=== PATIENT | female | born 1950 | race Caucasian/White ===

== ENCOUNTER 2023-12-12 13:48 | Emergency (ER) | payer OTHER, SELFPAY ==
[2023-12-12 13:51] VITALS: BP 148/86
[2023-12-12 14:16] LABS: % Basophils 0.2 % (0-2); % Eosinophils 0.8 % (0-6); % Immature Granulocytes 0.4 % (0-0.5); % Lymphocytes 13.4 % (20.5-51.1); % Monocytes 8.8 % (1.7-9.3); % Neutrophils 76.4 % (42.2-75.2); Absolute Eosinophils 0.1 10^3/uL (0-0.7); Absolute Immature Granulocytes 0.1 10^3/uL (0-0.05); Absolute Lymphocytes 1.6 10^3/uL (1.2-3.4); Absolute Neutrophils 8.9 10^3/uL (1.4-6.5); Hematocrit 39.1 % (37.0-47.0); Hemoglobin 13.6 g/dL (12.0-16.0); Mean Corp Hgb Conc. 34.8 g/dL (33.0-37.0); Mean Corpuscular Hgb 28.3 pg (27.0-31.0); Mean Corpuscular Volume 81.5 fL (81.0-99.0); Mean Platelet Volume 9.5 fL (7.4-10.4); Nucleated Red Blood Cells % 0 %; Platelet Count 351 10^3/uL (130-400); Red Cell Dist. Width 13.4 % (11.5-14.5); White Blood Cell Count 11.6 10^3/uL (4.8-10.8)
[2023-12-12 14:29] VITALS: BMI 33.1
[2023-12-12 14:57] LABS: Blood Urea Nitrogen 13 mg/dl (7-17); Calcium 8.8 mg/dl (8.4-10.2); Carbon Dioxide 12 mmol/L (22-30); Chloride 113 mmol/L (98-107); Estimated Creatinine Clearance 78 ml/min; Glucose 111 mg/dl (70-99); Lipase 86 U/L (23-300); Sodium 140 mmol/L (135-145); eGFR > 60.00
--- NOTE | 2023-12-12 15:14 | PHANOTE ---
Med Rec Note- patient does not speak [place]ian daughter translating but doesn't know how to explain the medication in [place]ian that she gets filled in her country
[2023-12-12 15:22] LABS: Urine Albumin Trace (Neg - Trace); Urine Bilirubin 1+ (Negative); Urine Character Clear (Clear); Urine Color Yellow; Urine Glucose Negative (Negative); Urine Ketone 3+ (Negative); Urine Leukocyte Trace (Negative); Urine Nitrite Negative (Negative); Urine Occult Blood 2+ (Negative); Urine Urobilinogen 1+ (Neg - 1+)
--- NOTE | 2023-12-12 15:35 | ED.GENMED ---
History of Present Illness
<Stephanie Wong PA-C - Last Filed: 12/12/23 20:42>
General
Chief Complaint: Abdominal Pain
Source: patient and family (daughter at bedside interpreting)
Exam Limitations: none
Time Seen by Provider: 12/12/23 14:29
Nursing documentation reviewed up to this point in time: agreed with
Travel History
Have you had any contact with someone who has COVID-19?: No
Do you have any symptoms of coronavirus? Fever > 100 degrees, chills, cough, shortness of breath, sore throat, loss of taste or smell, muscle aches, or headache?: No
History of Present Illness
History of Present Illness:
Patient is a 73 year old female with history gallstones presenting with daughter for evaluation of right upper quadrant abdominal pain. Symptoms started on Saturday afternoon after eating a slice of cake. She endorses intermittent right upper
quadrant pain with radiation around to the back and some associated nausea. She had 2 episodes of vomiting on Saturday night. She denies any fever, chills, chest pain, shortness of breath. She has no urinary symptoms. Patient has had similar
episodes in the past but deferred surgery in her home country of [facility]. Patient's daughter brought her to emergency department today due to concern that gallbladder might be infected. Patient's most recent episode of pain was earlier this
morning and has since completely resolved. She is asymptomatic in the emergency department right now.
She is currently visiting her daughter from [facility] with plans to go back on December 20.
Phy Exam
<Stephanie Wong PA-C - Last Filed: 12/12/23 20:42>
Physical Exam
Physical Exam:
General: Well appearing and non-toxic
Vitals: Vital signs stable, afebrile
HEENT: Atraumatic, normocephalic; pupils equal round reactive light bilaterally, sclera nonicteric; protecting airway
Neck: appears supple, no JVD
CV: Regular rate and rhythm, heart sounds normal, no evidence of cyanosis
Resp: No evidence of respiratory distress, lungs clear, no accessory muscle use
Abd: Soft, not tender in all 4 quadrants, no rebound tenderness or guarding, non-distended; negative Abel sign; no CVA tenderness
Extremities: No deformities, no evidence of cyanosis or edema
Neuro: alert and oriented, no focal neurologic deficits
Psych: Normal affect
Skin: Intact, no rashes
Course
<Stephanie Wong PA-C - Last Filed: 12/12/23 20:42>
Orders/Labs/Results
Orders:
Orders
12/12/23 14:07
Basic Metabolic Panel Urgent
Complete Blood Count/With Diff Urgent
Lipase Urgent
12/12/23 14:57
US Abdomen Complete/Upper Urgent
Comment:
Reason For Exam: right upper quadrant pain, hx gallstones
12/12/23 14:59
Electrocardiogram (*1) Urgent
Reason for Study: Abdominal Pain
EKG- Treatment ONCE
12/12/23 Dinner
NPO
Allow oral meds: No
Allow clear liquids: No
12/12/23 15:12
Urinalysis Reflex To Culture Urgent
Date Specimen was Collected: 12/12/23
Time Specimen was Collected: 14:56
Urine Microscopic Reflex Cult Urgent
12/12/23 17:13
0.9% Sodium Chloride 1000 ml [Nss] 1,000 ml IV BOLUS
CefTRIAXone [Rocephin] 1,000 mg IV NOW STA
MetroNIDAZOLE 500 MG/100 ML [Flagyl 500 mg] 100 ml IV NOW
12/12/23 18:45
Ciprofloxacin HCl [Cipro] 500 mg PO NOW STA
MetroNIDAZOLE [Flagyl] 500 mg PO NOW STA
Abnormal Lab Results
12/12/23 12/12/23
14:07 15:12
WBC 11.6 H 10^3/uL
(4.8-10.8)
Abs Immat Gran (auto) 0.1 H 10^3/uL
(0-0.05)
Absolute Neuts (auto) 8.9 H 10^3/uL
(1.4-6.5)
Absolute Monos (auto) 1.0 H 10^3/uL
(0.1-0.6)
Neutrophils % 76.4 H %
(42.2-75.2)
Lymphocytes % 13.4 L %
(20.5-51.1)
Chloride 113 H mmol/L
(98-107)
Carbon Dioxide 12 L* mmol/L
(22-30)
Glucose 111 H mg/dl
(70-99)
Urine Ketones 3+ A
(Negative)
Ur Occult Blood Reflex 2+ A
(Negative)
Urine Bilirubin 1+ A
(Negative)
Leukocyte Esterase Rfl Trace A
(Negative)
Urine RBC 7-10 A /HPF
(0-2)
12/12/23 14:07
12/12/23 15:33
Vital Signs
Initial and Last Documented VS:
Initial Vital Signs
Temp Pulse Resp BP Pulse Ox
98.1 F 96 18 148/86 99
12/12/23 13:51 12/12/23 13:51 12/12/23 13:51 12/12/23 13:51 12/12/23 13:51
Last Documented Vital Signs
Temp Pulse Resp BP Pulse Ox
98.1 F 96 18 148/86 99
12/12/23 13:51 12/12/23 13:51 12/12/23 13:51 12/12/23 13:51 12/12/23 13:51
<Primo Haley MD - Last Filed: 12/12/23 17:11>
Orders/Labs/Results
Orders:
Orders
12/12/23 14:07
Basic Metabolic Panel Urgent
Complete Blood Count/With Diff Urgent
Lipase Urgent
12/12/23 14:57
US Abdomen Complete/Upper Urgent
Comment:
Reason For Exam: right upper quadrant pain, hx gallstones
12/12/23 14:59
Electrocardiogram (*1) Urgent
Reason for Study: Abdominal Pain
EKG- Treatment ONCE
12/12/23 Dinner
NPO
Allow oral meds: No
Allow clear liquids: No
12/12/23 15:12
Urinalysis Reflex To Culture Urgent
Date Specimen was Collected: 12/12/23
Time Specimen was Collected: 14:56
Urine Microscopic Reflex Cult Urgent
12/12/23 17:13
0.9% Sodium Chloride 1000 ml [Nss] 1,000 ml IV BOLUS
CefTRIAXone [Rocephin] 1,000 mg IV NOW STA
MetroNIDAZOLE 500 MG/100 ML [Flagyl 500 mg] 100 ml IV NOW
12/12/23 18:45
Ciprofloxacin HCl [Cipro] 500 mg PO NOW STA
MetroNIDAZOLE [Flagyl] 500 mg PO NOW STA
Abnormal Lab Results
12/12/23 12/12/23
14:07 15:12
WBC 11.6 H 10^3/uL
(4.8-10.8)
Abs Immat Gran (auto) 0.1 H 10^3/uL
(0-0.05)
Absolute Neuts (auto) 8.9 H 10^3/uL
(1.4-6.5)
Absolute Monos (auto) 1.0 H 10^3/uL
(0.1-0.6)
Neutrophils % 76.4 H %
(42.2-75.2)
Lymphocytes % 13.4 L %
(20.5-51.1)
Chloride 113 H mmol/L
(98-107)
Carbon Dioxide 12 L* mmol/L
(22-30)
Glucose 111 H mg/dl
(70-99)
Urine Ketones 3+ A
(Negative)
Ur Occult Blood Reflex 2+ A
(Negative)
Urine Bilirubin 1+ A
(Negative)
Leukocyte Esterase Rfl Trace A
(Negative)
Urine RBC 7-10 A /HPF
(0-2)
12/12/23 14:07
12/12/23 15:33
Vital Signs
Initial and Last Documented VS:
Initial Vital Signs
Temp Pulse Resp BP Pulse Ox
98.1 F 96 18 148/86 99
12/12/23 13:51 12/12/23 13:51 12/12/23 13:51 12/12/23 13:51 12/12/23 13:51
Last Documented Vital Signs
Temp Pulse Resp BP Pulse Ox
98.1 F 96 18 148/86 99
12/12/23 13:51 12/12/23 13:51 12/12/23 13:51 12/12/23 13:51 12/12/23 13:51
<Stephanie Wong PA-C - Last Filed: 12/12/23 20:42>
MDM/Problems Addressed
Differential Diagnosis Includes:
Biliary colic, cholecystitis, choledocholithiasis, renal colic, nephrolithiasis, UTI, pneumonia
MDM/Problems Addressed:
Patient is a 73 year old female with history gallstones presenting with daughter for evaluation of intermittent right upper quadrant abdominal pain. Pain is worse after meals with radiation around to the back and some associated nausea. Similar to
prior episodes of biliary colic in past. She denies any fever, chills, chest pain, shortness of breath. She has no urinary symptoms. Physical exam as documented above. She is very well appearing. She is hemodynamically stable, afebrile. Abdomen is
soft and nontender in all 4 quadrants. Negative Abel sign. No CVA tenderness. Patient currently asymptomatic, denies any pain medication at this time. Will check basic labs, UA, EKG, abdominal US.
CBC with mild leukocytosis to 11.6. Otherwise no clinically significant abnormalities. CMP with acidosis and CO2 level of 12. Specimen hemolyzed and were unable to run LFTs. Will repeat draw of the CMP to ensure accurate results and obtain liver
function test. Urinalysis positive for blood and ketones. Could indicate possible kidney stone. Will eval kidneys with ultrasound
Abdominal ultrasound shows evidence of gallstone in the gallbladder neck and a 'sludge ball 'and fundus of gallbladder there is thickened gallbladder wall and rim of pericholecystic edema�consistent with acute cholecystitis in conjunction with
elevated white blood cell count.
Discussed acute cholecystitis diagnosis with patient and patient's daughter. Recommended admission for IV antibiotics and cholecystectomy. Phlebotomy was consulted for repeats CMP blood draw. Patient's daughter declined repeat blood draw despite
discussion regarding abnormal results and unable to evaluate liver function. Patient is uninsured and daughter would prefer patient to wait until back in home country of [facility] for surgery. Both myself and attending physician had lengthy
discussion with patient and patient's daughter regarding risks of delaying treatment of acute cholecystitis including but not limited to worsening infection, severe abdominal pain, sepsis, significant worsening condition and/or . Despite
risks�patient and patient's daughter would like to sign out AGAINST MEDICAL ADVICE.
Will discharge patient AMA with p.o. ciprofloxacin /metronidazole for 10 days. Initial dose of ciprofloxacin metronidazole given emergency department tonight. Will send prescription for Zofran for nausea if needed. Weighed risks and benefit of
prolonged QT risk with both ciprofloxacin and Zofran. Patient normal QT on EKG from ER. Given initial low CO2 level on blood work�would want to limit any future vomiting. Risks discussed at length with patient and patient's daughter. Return
precautions discussed at length. They will get home and [facility] soon as possible for surgery. They are well aware of the risks, have signed AMA form, and will return with any worsening.
Chronic conditions affecting care:
Gallstones
Acute Exacerbation and/or Progression of Chronic Illness:
Acute cholecystitis
<Stephanie Wong PA-C - Last Filed: 12/12/23 20:42>
*Radiology
Radiology exam reviewed: preliminary read by ED provider and radiology read reviewed
*Pulse Oximetry
Patient hypoxic: no
*EKG
EKG Intrepretation Date: 12/12/23
Interpretation: normal
Comparison EKG: no comparison EKG present
Heart Rate: 77
Rate: normal
Rhythm: sinus
Erhard: normal axis
Interval: normal interval
QRS Pattern: normal QRS
Ischemia: no ischemia
*Hospitality Specialist Interpretation
Rate: Hospitality Specialist- N/A
*Critical Care Note
Total Time (30-74mins, 75-104mins- exclusive of procedures): Not Applicable
ED Attending Note
<Stephanie Wong PA-C - Last Filed: 12/12/23 20:42>
-
Portions of this chart may have been created with voice recognition software.� Occasional wrong word or��sound alike� substitutions may have occurred due to the inherent limitations of voice recognition software.
<Primo Haley MD - Last Filed: 12/12/23 17:11>
ED Attending Note
Patient seen and examined by attending physician: Yes
ED Attending Note:
HPI: 73-year-old female with history of gallstones presents with her daughter for evaluation of abdominal pain. Patient has had intermittent abdominal pain for the past few days�reports onset initially was after eating some cake. Most recent
episode was this morning and lasted for a few hours and fortunately has completely resolved. Pain located in the right upper quadrant and radiates towards the right flank. Seems to be worse after eating unhealthy foods. No clear relieving factors
noted. No nausea or vomiting. No diarrhea or constipation. No fevers or chills. No urinary symptoms. Patient reportedly has had similar symptoms in the past related to gallstones and was recommended to have her gallbladder removed but had not
had symptoms for a year and a half per daughter and deferred surgery. Symptoms much more frequent over the past few days�patient is planned to go back to her home country of [facility] for surgery in December but daughter was concerned given increased
frequency that there could be infection or obstruction and so she brought her for assessment.
ROS: Positive for abdominal pain; negative for nausea, vomit, diarrhea, constipation, chest pain, shortness of breath, fever, chills, dysuria, hematuria
Physical exam:
General: Awake, alert; no acute distress
Head: Normocephalic, atraumatic
Eyes: Conjunctiva normal, sclera anicteric
Throat: Airway intact, handling secretions
Neck: Trachea midline, supple without meningismus
Lungs: Clear to auscultation bilaterally, no wheezing, rales, rhonchi
Heart: Regular rate and rhythm, no murmurs, gallops, or rubs
Abd: Soft, non distended, nontender to deep palpation
Neuro: Cranial nerves grossly intact, speech fluid
Skin: no rash
Extremities: No edema in extremities, equal pulses in all extremities
Differential diagnosis: Cholelithiasis, cholecystitis, choledocholithiasis, pancreatitis, nephrolithiasis
Medical decision makin-year-old female presents for evaluation of waxing and waning right upper quadrant pain radiating to the right flank exacerbated by meals. Similar to prior biliary colic. Fortunately she is currently pain-free. Vital
signs normal. Exam as above�she has no abdominal tenderness. Will place an IV check labs including CBC and CMP, lipase. Check urinalysis. Will check upper abdominal ultrasound. EKG. Monitor and reassess.
Labs reviewed: CBC shows leukocytosis 11.6. CMP hemolyzed�repeat pending. Lipase normal. Abdominal ultrasound concerning for acute cholecystitis. PA discussed with general surgery for admission. Will cover with antibiotics.
Chronic conditions affecting care: Gallstones
Acute exacerbation or progression of chronic illness: N/A
History source: Patient, daughter
Data reviewed: N/A
Medications/testing considered: N/A
Social determinants of health: N/A
Discussion with other providers: General surgery
Discharge Plan
Departure
Patient Disposition: Against Medical Advice
Date of Disposition: 12/12/23
Time of Disposition: 18:53
Patient with high blood pressure during this ER visit?: Yes
Condition: Fair
Covid-19: Not Applicable
Discharge Problem:
Acute cholecystitis
Instructions: Gallstones (DC), Gallbladder Diet, BLOOD PRESSURE
Prescriptions:
New
metronidazole 500 mg tablet
500 mg PO TID 10 Days Qty: 30 0RF
ciprofloxacin HCl 500 mg tablet
500 mg PO BID 10 Days Qty: 20 0RF
ondansetron 4 mg tablet,disintegrating
4 mg PO TIDPRN PRN (Reason: nausea/vomiting) Qty: 7 0RF
Activity Restrictions/Additional Instructions:
- As discussed - you are leaving against medical advice today from the emergency department
-Return to the emergency department with any high fevers, severe abdominal pain, intractable vomiting, severe back pain, significant worsening in current symptoms, or any other concerns
-It is very important that you follow-up with a general surgeon as soon as you return back to [facility] for further evaluation/treatment of cholecystitis
-You received your first dose of antibiotic while in the emergency department today. I have sent prescriptions for the rest of your antibiotics to your pharmacy. It is important that you take these as directed for the full course. You must not
drink any alcohol while taking these medications.
-You can take Zofran every 8 hours as needed for persistent/severe nausea. You can take Tylenol/Motrin as needed for discomfort
-You should follow a low fat diet. Information has been provided to you regarding appropriate diet
Interventions
Interventions:
*Risk Screen - Suicide Last Done: 12/12/23 14:29
*General Assessment Last Done: 12/12/23 14:29
*Neglect/Abuse Screening Last Done: 12/12/23 14:29
ED- Fall Risk Assessment Last Done: 12/12/23 14:29
*ED COVID-19 Vaccine History Last Done: 12/12/23 14:29
*Nursing Disposition Last Done: 12/12/23 19:09
TV-[id number]-[id number] Assessment Last Done: 12/12/23 14:29
Discharge Date and Time
Discharge Date/Time: 12/12/23 19:10
[2023-12-12 15:45] LABS: Urine Squamous Cell 0-2 /LPF (Few); Urine White Cell 0-2 /HPF (0-5)
[2023-12-12] MEDS: CIPRO 500 MG PO (18:53)
[2023-12-12] MEDS: FLAGYL 500 MG PO (18:53)
== END 2023-12-12 19:10 | disposition left against medical advice (07) ==
LOC: EMR 13:48
PROVIDERS: Physician Assistant; Student in an Organized Health Care Education/Training Program; EMERGENCY PHYSICIAN Emergency Medicine
DX: K80.62 Calculus of gallbladder and bile duct with acute cholecystitis without obstruction (principal); Z90.49 Acquired absence of other specified parts of digestive tract
CPT/HCPCS: 99284; 76700; 80048; 81003; 81015; 83690; 85025; 93005